=== PATIENT | female | born 1975 | race Caucasian/White ===

== ENCOUNTER 2017-02-24 13:57 | Day surgery (SDC) | payer OTHER ==
[~2017-02-24] VITALS: Ht 160 cm; Wt 78.5 kg
[2017-02-24 14:07] VITALS: BP 123/86; PULSE 84; TEMP 97.2
[2017-02-24] MEDS ORDERED: ADVIL200 MG PO (14:20)
[2017-02-24 16:11] VITALS: BP 118/69; PULSE 107; TEMP 96.9
--- NOTE | 2017-02-24 16:11 | NUR ---
Pt. returned to [facility] via cart accompanied by maribel RN. Pt. is drowsy but arouses easily to voice and answers questions appropriately. Requests Sprite and a muffin, tolerating PO intake well. VS stable. Dr. Esquivel in to see pt. to discuss procedure. Pt. is waiting for her spouse to return to the hospital at this time. Denies pain/nausea/further needs. Call izaguirre within reach.
[2017-02-24 16:26] VITALS: BP 115/71; PULSE 94
--- NOTE | 2017-02-24 16:26 | NUR ---
Pt. continues to rest in chair, spouse is now in room. Pt. states she is ready to go home. IV discontinued at this time with tip intact. Pt. stated the procedure was painful and that the IV has been sore since it was placed. Dressing applied and pt. and spouse instructed to place a warm compress for comfort on IV site, pt. and spouse voice understanding. Pt. dressed independently at this time. Discharge instructions provided at 1650, pt. and spouse voice understanding. Pt. discharged at 1700 via wheelchair by this RN. Pt. assisted into private vehicle and driven home by spouse.
[2017-02-24] MEDS ORDERED: MIRALAX119G PO (16:41)
[2017-02-24 17:45] VITALS: BP 111/47; PULSE 87
== END 2017-02-24 17:00 | disposition home or self-care (01) ==
LOC: SDCO 13:57
DX: K64.0 First degree hemorrhoids (principal); K59.00 Constipation, unspecified
CPT/HCPCS: OP; J2250; J2405; J3010